=== PATIENT | male | born 1995 | race Caucasian/White ===

== ENCOUNTER 2016-11-27 13:06 | Emergency (ER) | payer SELFPAY ==
[2016-11-27 13:26] VITALS: BP 134/59
[2016-11-27] MEDS ORDERED: DIPH/PERTUSS(ACELL)/TETANUS VAC/PF 0.5 ML SYR (>=10YO) IM ONE (13:46)
--- NOTE | 2016-11-27 13:47 | ER Document Report ---
ED Medical Screen (RME) - General Stated Complaint: FINGER CUT Time seen by provider: 13:44 Mode of Arrival: Ambulatory Information source: Patient Notes: 21-year-old male cut fourth right index finger on tile less than an hour ago. There is a 6 mm cuts over the dorsal PIP joint. Full range of motion. I have greeted and performed a rapid initial assessment of this patient. A comprehensive ED assessment, evaluation of the patient, analysis of test results , and completion of the medical decision making process will be contacted by additional ED providers. - Related Data Allergies/Adverse Reactions: No Known Allergies Allergy (Verified 11/27/16 13:44) Physical Exam - Vital signs Vitals: Temp Pulse Resp BP Pulse Ox 98.2 F 80 18 134/59 H 98 11/27/16 13:25 11/27/16 13:25 11/27/16 13:25 11/27/16 13:25 11/27/16 13:25 Course - Vital Signs Vital signs: Temp Pulse Resp BP Pulse Ox 98.2 F 80 18 134/59 H 98 11/27/16 13:25 11/27/16 13:25 11/27/16 13:25 11/27/16 13:25 11/27/16 13:25
[2016-11-27] MEDS ORDERED: LIDOCAINE 1.5%/EPINEPHRINE INJ-PF 30 ML SDV INJ ONE (15:03)
[2016-11-27] MEDS ORDERED: LIDOCAINE 1%/EPINEPHRINE INJ 20 ML VIAL INJ ONE (15:07)
--- NOTE | 2016-11-27 15:07 | ER Document Report ---
ED General - General Chief Complaint: Finger Injury Stated Complaint: FINGER CUT Mode of Arrival: Ambulatory TRAVEL OUTSIDE OF THE [place] 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 Patient denies any other injuries. - Related Data Allergies/Adverse Reactions: No Known Allergies Allergy (Verified 11/27/16 13:44) Past Medical History - General Information source: Patient - Social History Smoking Status: Current Every Day Smoker Chew tobacco use (# tins/day): Yes - ppd Frequency of alcohol use: Occasional Family History: Reviewed & Not Pertinent Patient has suicidal ideation: No Patient has homicidal ideation: No Renal/ Medical History: Denies: Hx Peritoneal Dialysis Review of Systems - Review of Systems Constitutional: No symptoms reported EENT: No symptoms reported Cardiovascular: No symptoms reported Respiratory: No symptoms reported Gastrointestinal: No symptoms reported Genitourinary: No symptoms reported Male Genitourinary: No symptoms reported Musculoskeletal: Other - Avulsion laceration Finger Skin: No symptoms reported Hematologic/Lymphatic: No symptoms reported Neurological/Psychological: No symptoms reported Physical Exam - Vital signs Vitals: Temp Pulse Resp BP Pulse Ox 98.2 F 80 18 134/59 H 98 11/27/16 13:25 11/27/16 13:25 11/27/16 13:25 11/27/16 13:25 11/27/16 13:25 Interpretation: Normal - General General appearance: Appears well, Alert - HEENT Head: Normocephalic, Atraumatic Eyes: Normal Pupils: PERRL - Respiratory Respiratory status: No respiratory distress Chest status: Nontender Breath sounds: Normal Chest palpation: Normal - Cardiovascular Rhythm: Regular Heart sounds: Normal auscultation Murmur: No - Abdominal Inspection: Normal Distension: No distension Bowel sounds: Normal Tenderness: Nontender Organomegaly: No organomegaly - Back Back: Normal, Nontender - Extremities General upper extremity: Nontender, Normal color, Normal ROM, Normal temperature. No: Normal inspection - Patient has an avulsion of skin below the PIP joint of the index finger left hand mild bleeding General lower extremity: Normal inspection, Nontender, Normal color, Normal ROM , Normal temperature, Normal weight bearing. No: Malcolm's sign - Neurological Neuro grossly intact: Yes Cognition: Normal Orientation: AAOx4 Sadia Coma Scale Eye Opening: Spontaneous Bondurant Coma Scale Verbal: Oriented Sadia Coma Scale Motor: Obeys Commands Sadia Coma Scale Total: 15 Speech: Normal Motor strength normal: LUE, RUE, LLE, RLE Sensory: Normal - Psychological Associated symptoms: Normal affect, Normal mood - Skin Skin Temperature: Warm Skin Moisture: Dry Skin Color: Normal Course - Re-evaluation Re-evalutation: 11/27/16 22:36 Patient with an avulsion of the skin repaired this time wound care was applied. Patient discharged home - Vital Signs Vital signs: Temp Pulse Resp BP Pulse Ox 98.2 F 80 18 134/59 H 98 11/27/16 13:25 11/27/16 13:25 11/27/16 13:25 11/27/16 13:25 11/27/16 13:25 Discharge - Discharge Clinical Impression: Open wound Condition: Good Disposition: HOME, SELF-CARE Instructions: Dressing Instructions for Open Wounds ([facility]) Additional Instructions: Follow-up with your primary care physician. Take medication as prescribed. Return to the ER symptoms worsen. Prescriptions: Hydrocodone Bit/Acetaminophen [Hydrocodon-Acetaminophen 5-325] 1 each PO Q6 #14 tablet Sulfamethoxazole/Trimethoprim [Bactrim 400-80 mg Tablet] 1 each PO BID #14 tablet Forms: Return to Work
== END 2016-11-27 15:28 | disposition home or self-care (01) ==
LOC: ER 13:06
DX: S61.211A Laceration without foreign body of left index finger without damage to nail, initial encounter (principal); W45.8XXA Other foreign body or object entering through skin, initial encounter; Y99.0 Civilian activity done for income or pay; F17.200 Nicotine dependence, unspecified, uncomplicated
CPT/HCPCS: 99283; 90471; 90715; J3490 ×2

== ENCOUNTER 2019-12-20 16:07 | Emergency (ER) | payer SELFPAY ==
--- NOTE | 2019-12-20 16:20 | ER Document Report ---
ED Medical Screen (RME) - General Chief Complaint: Abdominal Pain Stated Complaint: LOWER ABDOMINAL PAIN/CHILLS/HOT FLASHES/BLURRY VIS Time Seen by Provider: 12/20/19 16:14 Mode of Arrival: Ambulatory Information source: Patient Notes: 24-year-old male presented to ED for complaint of abdominal pain today. He states he had a laproscopic appendectomy on November 29. He states his appendix was ruptured and they thought that the laparoscopic kept him in the hospital for about a week on antibiotics due to the ruptured appendix. He states the abdomen was doing good and then this morning he started having abdominal pain. He has been trying to walk and move around, but his abdomen has has become more distended throughout the day and the pain has increased and now it is a 5 out of 5. He states he is not taking his antibiotics as instructed has missed days at a time. Abdomen is very distended extreme tenderness to the entire abdomen. I have greeted and performed a rapid initial assessment of this patient. A comprehensive ED assessment and evaluation of the patient, analysis of test results and completion of medical decision making process will be conducted by an additional ED providers. TRAVEL OUTSIDE OF THE [place] IN LAST 30 DAYS: No - Related Data Allergies/Adverse Reactions: codeine Allergy (Intermediate, Verified 12/20/19 16:27) Swelling of Throat Past Medical History Renal/ Medical History: Denies: Hx Peritoneal Dialysis Physical Exam - Vital signs Vitals: Temp Pulse Resp BP Pulse Ox 97.8 F 78 16 133/75 H 98 12/20/19 16:13 12/20/19 16:13 12/20/19 16:13 12/20/19 16:13 12/20/19 16:13 Course - Vital Signs Vital signs: Temp Pulse Resp BP Pulse Ox 97.7 F 62 20 115/68 98 12/20/19 20:41 12/20/19 20:41 12/20/19 20:41 12/20/19 20:41 12/20/19 20:41 - Laboratory Result Diagrams: 12/20/19 16:35 12/20/19 16:35 Laboratory results interpreted by me: 12/20/19 12/20/19 16:35 16:35 Carbon Dioxide 34 H ALT 59 H Total Protein 8.6 H Urine Blood SMALL H Doctor's Discharge - Discharge Clinical Impression: Post-op pain Condition: Stable Disposition: HOME, SELF-CARE Additional Instructions: Your laboratory work-up and CAT scan did not show any concerning findings. Your evaluation is reassuring. I spoke with Dr. Jorgensen, on-call for Dr. Shay heller, please call the office on Sunday for your close follow-up. Take provide medications if needed. Drink plenty of fluids and improve your hydration. Return if you worsen including vomiting, developing/spreading redness, fever, severe worsening pain, or any other concerning symptoms.
--- NOTE | 2019-12-20 17:09 | RADIOLOGY REPORT (SQ) ---
EXAM DESCRIPTION: ACUTE ABDOMEN SERIES COMPLETED DATE/TIME: 12/20/2019 4:58 pm REASON FOR STUDY: Distended painful abdomen recent appendectomy COMPARISON: None. NUMBER OF VIEWS: One view. TECHNIQUE: Supine radiographic image of the abdomen acquired. LIMITATIONS: None. FINDINGS: BOWEL GAS PATTERN: Non-obstructive bowel gas pattern. No dilated loops. CALCIFICATIONS: No suspicious calcifications. SOFT TISSUES: No gross mass or suggestion of organomegaly. HARDWARE: None in the abdomen. BONES: No acute fracture. No worrisome bone lesions. OTHER: No other significant finding. IMPRESSION: NO RADIOGRAPHIC EVIDENCE FOR ACUTE ABDOMINAL DISEASE. TECHNICAL DOCUMENTATION: JOB ID: [id number] [id number] 2010 [employer] ([employer] All Rights Reserved Reading location - IP/workstation name: [email or web address]
[2019-12-20] MEDS ORDERED: NORMAL SALINE 1000 ML 1,000 ML IV ONE (17:14)
[2019-12-20] MEDS ORDERED: MORPHINE SULFATE 10 MG/ML INJ IV ONE ×2 (17:15→21:05)
[2019-12-20 17:18] LABS: AMORPHOUS SEDIMENT,URINE TRACE /HPF; APPEARANCE,URINE CLOUDY; BILIRUBIN,URINE NEGATIVE (NEGATIVE); COLOR,URINE YELLOW; GLUCOSE, URINE NEGATIVE (NEGATIVE); KETONES,URINE NEGATIVE (NEGATIVE); PROTEIN,URINE NEGATIVE (NEGATIVE); URINE SPECIFIC GRAVITY 1.021; UROBILINOGEN,URINE NEGATIVE mg/dL (<2.0)
--- NOTE | 2019-12-20 17:18 | ER Document Report ---
ED GI/ - General Mode of Arrival: Ambulatory TRAVEL OUTSIDE OF THE [place] IN LAST 30 DAYS: No - HPI Patient complains to provider of: Abdominal pain. No: Diarrhea, Dysuria, Vomiting Onset: Yesterday Timing/Duration: Worse Quality of pain: Sharp Pain Level: 5 Associated symptoms: denies: Constipation, Diarrhea, Fever, Nausea, Urinary hesitancy, Urinary frequency, Urinary retention, Urinary urgency, Vomiting Exacerbated by: Movement Relieved by: Denies Similar symptoms previously: No Recently seen / treated by doctor: Yes - Related Data Home Medications: oxycodone <SUNITHA LITTLE - Last Filed: 12/20/19 19:53> <KAELYN HOUSTON - Last Filed: 12/21/19 07:12> - General Chief Complaint: Abdominal Pain Stated Complaint: LOWER ABDOMINAL PAIN/CHILLS/HOT FLASHES/BLURRY VIS Time Seen by Provider: 12/20/19 17:00 Notes: Patient states that he had a laparoscopic appendectomy performed on 11/29/2019 at [facility]. Patient states that his appendix had perforated. Patient states he was admitted to the hospital for about a week after the surgery. Patient states he was prescribed an antibiotic Augmentin that he states that he has missed several doses. Patient states prescription was written on 12/03/2019 and he still has some of the antibiotic left. Patient states he has had purulent drainage noted from the umbilicus. Patient states he started to have lower abdominal pain yesterday that worsened today which prompted his visit here today. Patient denies any nausea vomiting or diarrhea. No fever. Last bowel movement was today and was normal. (SUNITHA LITTLE) - Related Data Allergies/Adverse Reactions: codeine Allergy (Intermediate, Verified 12/20/19 16:27) Swelling of Throat Past Medical History - General Information source: Patient - Social History Smoking Status: Current Every Day Smoker Chew tobacco use (# tins/day): No Frequency of alcohol use: Social Drug Abuse: Marijuana Occupation: Construction Lives with: Family Family History: Reviewed & Not Pertinent Patient has suicidal ideation: No Patient has homicidal ideation: No Renal/ Medical History: Denies: Hx Peritoneal Dialysis GI Medical History: Reports: Hx Gastroesophageal Reflux Disease, Hx Endoscopy - Polyp removal Past Surgical History: Reports: Hx Adenoidectomy, Hx Appendectomy - ruptured- lap, Hx Tonsillectomy <SUNITHA LITTLE - Last Filed: 12/20/19 19:53> Review of Systems - Review of Systems Constitutional: No symptoms reported. denies: Fever EENT: No symptoms reported Cardiovascular: No symptoms reported. denies: Chest pain Respiratory: No symptoms reported Gastrointestinal: Abdominal pain, Other - Drainage to umbilicus. denies: Diarrhea, Vomiting, Constipation, Poor appetite Genitourinary: No symptoms reported Male Genitourinary: No symptoms reported Musculoskeletal: No symptoms reported. denies: Back pain Skin: Other - Drainage to umbilical wound Hematologic/Lymphatic: No symptoms reported Neurological/Psychological: No symptoms reported <SUNITHA LITTLE - Last Filed: 12/20/19 19:53> Physical Exam - General General appearance: Appears well, Alert In distress: None - HEENT Head: Normocephalic, Atraumatic Eyes: Normal Nasal: Normal Mouth/Lips: Normal Mucous membranes: Normal Neck: Normal, Supple - Respiratory Respiratory status: No respiratory distress Chest status: Nontender Breath sounds: Normal. No: Rales, Rhonchi, Stridor, Wheezing Chest palpation: Normal - Cardiovascular Rhythm: Regular Heart sounds: S1 appreciated, S2 appreciated Murmur: No - Abdominal Inspection: Other - Purulent drainage noted to umbilicus Distension: No distension Bowel sounds: Normal Tenderness: Tender - Periumbilical, lower pelvic tenderness, Guarding Organomegaly: No organomegaly - Back Back: Normal, Nontender. No: CVA tenderness - Extremities General upper extremity: Normal inspection, Normal strength General lower extremity: Normal inspection, Normal strength - Neurological Neuro grossly intact: Yes Cognition: Normal Orientation: AAOx4 Marcellus Coma Scale Eye Opening: Spontaneous Marcellus Coma Scale Verbal: Oriented Marcellus Coma Scale Motor: Obeys Commands Sadia Coma Scale Total: 15 - Psychological Associated symptoms: Normal affect, Normal mood - Skin Skin Temperature: Warm Skin Moisture: Dry Skin Color: Normal <SUNITHA LITTLE - Last Filed: 12/20/19 19:53> - Vital signs Vitals: Temp Pulse Resp BP Pulse Ox 97.8 F 78 16 133/75 H 98 12/20/19 16:13 12/20/19 16:13 12/20/19 16:13 12/20/19 16:13 12/20/19 16:13 Course - Laboratory Result Diagrams: 12/20/19 16:35 12/20/19 16:35 <SUNITHA LITTLE - Last Filed: 12/20/19 19:53> - Laboratory Result Diagrams: 12/20/19 16:35 12/20/19 16:35 <KAELYN HOUSTON - Last Filed: 12/21/19 07:12> - Re-evaluation Re-evalutation: 12/20/19 19:53 Patient updated regarding plan of care. Patient tolerating oral contrast without difficulty. Patient denies needing any additional pain medication at this time. (SIDNEYSUNITHA) 12/20/19 21:01 CT of the abdomen pelvis with no acute findings. No abscess or acute abnormality. On my exam patient is well-appearing. He does have some tenderness in the inferior abdomen below the umbilicus although there does not appear to be any severe tenderness. Patient states he actually feels a lot better now than he did earlier. He states he took his last dose of pain medication earlier and now ran out. I do not see any current drainage from the wound, there is no significant erythema or streaking from the area, there is no noted induration to the area either. Patient is afebrile, CBC unremarkable, patient's overall evaluation is reassuring. I called [facility], patient states he had initial surgery by Dr. Day, pending callback from Dr. Jorgensen (rn liaison for Dr. Day). 12/20/[address] Jorgensen. Discussed presentation, exam, work-up. She states she does not recommend that we attempt to open the wound at this time, she states this sounds reassuring, with negative laboratory exam, work-up, and based on his physical exam recommendation is simply for patient to follow-up in the office, he is to call on Sunday and most likely still be seen on Sunday unless he is still having symptoms of discharge. He is to return if he worsens and I discussed this in detail. No additional recommendations at this time. On reevaluation patient states he does feel a lot better and he is ready to go home. Patient states appreciation and agreement with plan. (KAELYN HOUSTON) - Vital Signs Vital signs: Temp Pulse Resp BP Pulse Ox 98.5 F 68 16 113/81 97 12/20/19 22:52 12/20/19 22:52 12/20/19 22:52 12/20/19 22:52 12/20/19 22:52 - Laboratory Laboratory results interpreted by me: 12/20/19 12/20/19 16:35 16:35 Carbon Dioxide 34 H ALT 59 H Total Protein 8.6 H Urine Blood SMALL H Discharge <SIDNEYMICHAELOMARJOSE LUIS - Last Filed: 12/20/19 19:53> <KAELYN HOUSTON - Last Filed: 12/21/19 07:12> - Discharge Clinical Impression: Post-op pain Condition: Stable Disposition: HOME, SELF-CARE Additional Instructions: Your laboratory work-up and CAT scan did not show any concerning findings. Your evaluation is reassuring. I spoke with Dr. Jorgensen, on-call for Dr. Shay heller, please call the office on Sunday for your close follow-up. Take provide medications if needed. Drink plenty of fluids and improve your hydration. Return if you worsen including vomiting, developing/spreading redness, fever, severe worsening pain, or any other concerning symptoms.
[2019-12-20 17:21] LABS: ABSOLUTE BASOPHILS # (AUTO) 0.1 10^3/uL (0.0-0.2); ABSOLUTE EOSINOPHILS # (AUTO) 0.5 10^3/uL (0.0-0.6); ABSOLUTE LYMPHOCYTES (AUTO) 3.5 10^3/uL (0.5-4.7); ABSOLUTE MONOCYTES (AUTO) 0.9 10^3/uL (0.1-1.4); ABSOLUTE NEUT (AUTO) 4.5 10^3/uL (1.7-8.2); EOSINOPHILS % (AUTO) 5.4 % (0-6); HEMATOCRIT 41.4 % (37.9-51.0); HEMOGLOBIN 14.3 g/dL (13.5-17.0); LYMPHOCYTES % (AUTO) 36.5 % (13-45); MEAN CORPUSCULAR HEMOGLOBIN 31.2 pg (27.0-33.4); MEAN CORPUSCULAR HGB CONC 34.4 g/dL (32.0-36.0); MEAN CORPUSCULAR VOLUME 91 fl (80-97); MONOCYTES % (AUTO) 9.5 % (3-13); PLATELET COUNT 374 10^3/uL (150-450); RED BLOOD COUNT 4.57 10^6/uL (4.35-5.55); RED CELL DISTRIBUTION WIDTH 13.6 % (11.5-14.0); SEGMENTED NEUTROPHILS % (AUTO) 47.6 % (42-78); TOTAL CELLS COUNTED % (AUTO) 100 %; WHITE BLOOD COUNT 9.5 10^3/uL (4.0-10.5)
[2019-12-20 17:29] LABS: ALBUMIN 4.9 g/dL (3.5-5.0); ALKALINE PHOSPHATASE 91 U/L (38-126); ANION GAP 8 (5-19); ASPARTATE AMINO TRANSFERASE 45 U/L (17-59); BILIRUBIN,DIRECT 0.3 mg/dL (0.0-0.4); BILIRUBIN,TOTAL 0.4 mg/dL (0.2-1.3); BLOOD UREA NITROGEN 14 mg/dL (7-20); CALCIUM 10.1 mg/dL (8.4-10.2); CARBON DIOXIDE 34 mmol/L (22-30); CHLORIDE 100 mmol/L (98-107); GLUCOSE 86 mg/dL (75-110); POTASSIUM 4.3 mmol/L (3.6-5.0); TOTAL PROTEIN 8.6 g/dL (6.3-8.2)
[2019-12-20] MEDS ORDERED: ONDANSETRON HCL INJ/PF 4 MG/2 ML SDV IV ONE (17:55)
--- NOTE | 2019-12-20 20:30 | RADIOLOGY REPORT (SQ) ---
EXAM DESCRIPTION: CT ABDOMEN PELVIS WITH IV CONTRAST COMPLETED DATE/TME: 12/20/2019 00:00 CLINICAL HISTORY: 24 years, Male, abd pain, hx lap appy 11/29/19 after perf COMPARISON: None. TECHNIQUE: Contiguous axial CT images of the abdomen and pelvis were obtained. Sagittal and coronal reformats were reviewed. This exam was performed according to our departmental dose-optimization program, which includes automated exposure control, adjustment of the mA and/or kV according to patient size and/or use of iterative reconstruction technique. FINDINGS: Lung bases: Clear. Liver:Unremarkable. No focal liver lesion. Gallbladder:Unremarkable. No gallstones. No gallbladder wall thickening or pericholecystic fluid. Spleen:Unremarkable Pancreas: Pancreas is unremarkable. Adrenal glands:Within normal limits. Kidneys/ureters:Within normal limits Stomach/small bowel/colon: Stomach is unremarkable. Small bowel is unremarkable. Colon is unremarkable. Appendix: No evidence of appendicitis. Peritoneum: No free fluid. Vascular structures: within normal limits Lymph nodes: No abnormal lymph nodes. Bladder:Unremarkable. Pelvic organs: No acute abnormality Bones: No acute osseous abnormality. Soft tissues: Unremarkable.. IMPRESSION: No acute intra-abdominal abnormality.
[2019-12-20] MEDS ORDERED: ONDANSETRON ODT 4 MG TAB (6 TAB/ER DISP) PO PRN (21:06)
[2019-12-20] MEDS ORDERED: HYDROCODONE/ACETAMINOPHEN 5-325 MG (6 TAB/ER DISP) PO PRN (21:06)
[2019-12-20 22:53] VITALS: BP 113/81
== END 2019-12-20 22:53 | disposition home or self-care (01) ==
LOC: ER 16:07
DX: G89.18 Other acute postprocedural pain (principal); R10.30 Lower abdominal pain, unspecified; R10.815 Periumbilic abdominal tenderness; F17.200 Nicotine dependence, unspecified, uncomplicated; Z90.49 Acquired absence of other specified parts of digestive tract; Z88.6 Allergy status to analgesic agent; Z88.5 Allergy status to narcotic agent
CPT/HCPCS: 96376; 99284; 96361; 96374; 96375; 36415; 87040; 87070; 87205; 85025; 80053; 81001; 74022; 74177; J2270; J2405; J7030